=== PATIENT | male | born 1985 | race Two or more races ===

== ENCOUNTER → 2017-05-01 | Outpatient (REF) | payer OTHER | LOC: M SMT 10:00 | PROVIDERS: ATTEND Urology | DX: Z30.2 Encounter for sterilization (principal) ==

== ENCOUNTER → 2017-07-01 | Outpatient (REF) | payer OTHER ==
[2017-07-01 11:33] LABS: IMMMOTILE SPERM CENTRIFUGED ABSENT (ABSENT); IMMOTILE SPERM ABSENT (ABSENT); MOTILE SPERM ABSENT (ABSENT); MOTILE SPERM CENTRIFUGED ABSENT (ABSENT)
== END ==
LOC: M SMT 11:06
PROVIDERS: ATTEND Urology
DX: Z30.2 Encounter for sterilization (principal)

== ENCOUNTER 2017-08-09 16:50 | Emergency (ER) | payer OTHER ==
[~2017-08-09] VITALS: Ht 188 cm; Wt 113.6 kg
[2017-08-09] MEDS ORDERED: LISI20TA3 PO (16:59)
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
[2017-08-09 19:19] VITALS: BP 133/71
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
== END 2017-08-09 19:22 | disposition home or self-care (01) ==
LOC: M ED 16:50
DX: S00.83XA Contusion of other part of head, initial encounter (principal); S16.1XXA Strain of muscle, fascia and tendon at neck level, initial encounter; S06.0X0A Concussion without loss of consciousness, initial encounter; W22.8XXA Striking against or struck by other objects, initial encounter; Y92.9 Unspecified place or not applicable; Y93.H1 Activity, digging, shoveling and raking; Y99.9 Unspecified external cause status; I10 Essential (primary) hypertension; Z79.899 Other long term (current) drug therapy